=== PATIENT | female | born 1935 ===

== ENCOUNTER 2019-02-09 10:08 | Inpatient (IN) | payer MEDICARE ==
[2019-02-09 10:09] VITALS: BMI 23.4
--- NOTE | 2019-02-09 10:17 | ED PDOC ---
Arrival/HPI - General Time Seen by Provider: 02/09/19 10:09 Historian: Family, EMS EM Caveat: Acuity of Condition (Respiratory arrest) - History of Present Illness Narrative History of Present Illness (Text): 02/09/19 10:09 83 year old female, with past medical history of Alzheimer's, presents to the ED accompanied by daughter via EMS s/p respiratory distress since prior to arrival. As per daughter, patient began grasping for air that soon developed into respiratory distres this morning. EMS was subsequently called. Patient was given 500 units of bolus with continuous bagging with a BVM en route to the hospital. Upon arrival to ED, patient was still in respiratory distress. Daughter rat bedside states pt DNR/DNI for the patient. ROS limited secondary to patient's clinical condition. 02/09/19 14:53 Time/Duration: Prior to Arrival Symptom Onset: Sudden Symptom Course: Unchanged Activities at Onset: Light Context: Home Past Medical History - Provider Review Nursing Documentation Reviewed: Yes Family/Social History - Physician Review Nursing Documentation Reviewed: Yes Family/Social History: No Known Family HX Allergies/Home Meds Allergies/Adverse Reactions: Allergies No Known Allergies Allergy (Unverified 02/09/19 10:09) Review of Systems - Review of Systems Systems not reviewed;Unavailable: Acuity of Condition (Respiratory arrest) Physical Exam Vital Signs Reviewed: Yes Blood Pressure: Hypotensive Pulse: Tachycardic Appearance: Positive for: Cachectic Pain Distress: None Medical Decision Making ED Course and Treatment: 02/09/19 10:09 Impression: 83 year old female presents to the ED s/p respiratory distress. family request dni dnr. no aggressive measures. baseline demented non verbal bedbound. Plan: -- VBG -- EKG -- Labs -- Chest X-ray -- Urinalysis -- Reassess and disposition Prior Visits: Notes and results from previous visits were reviewed. Progress Notes: 02/09/19 10:09 EKG reviewed, shows A-fib at 135 bpm, non-specific ST/T wave changes. No previous EKG for comparison. 02/09/19 10:56 Chest X-ray reviewed by radiologist, shows; FINDINGS: LUNGS: There is extensive opacity in the right middle lobe banded superiorly by the minor fissure. Likely pneumonia. No volume loss. Examination limited by oblique positioning of the patient. No left-sided infiltrate. PLEURA: No gross evidence of pleural effusion. Right costophrenic angle is not included in this film, however. CARDIOVASCULAR: No aortic atherosclerotic calcification present. Normal cardiac size. No pulmonary vascular congestion. OSSEOUS STRUCTURES: No significant abnormalities. VISUALIZED UPPER ABDOMEN: Normal. OTHER FINDINGS: None. IMPRESSION: Suspect right middle lobe pneumonia. Limited examination. 02/09/19 10:56 CODE SEPSIS ACTIVATED. 02/09/19 14:54 anbitocis fluids given. lovenox given for afib. lasix given. seen by gail paramonte bedside. poor prognosis. condition gaurded. 02/09/19 14:55 neuropenic precautions iniated. - RAD Interpretation Target Worker: Radiologist - Gilbertoibarmani Statement The provider has reviewed the documentation as recorded by the Scribarmani Quintero. All medical record entries made by the Gilbertoibe were at my direction and personally dictated by me. I have reviewed the chart and agree that the record accurately reflects my personal performance of the history, physical exam, medical decision making, and the department course for this patient. I have also personally directed, reviewed, and agree with the discharge instructions and disposition. Disposition/Present on Arrival - Present on Arrival Any Indicators Present on Arrival: No - Disposition Have Diagnosis and Disposition been Completed?: Yes Diagnosis: Neutropenia, Sepsis, Pneumonia, Lactic acidosis Disposition: HOSPITALIZED Disposition Time: 13:00 Condition: CRITICAL
[2019-02-09] MEDS ORDERED: Sodium Chloride 0.9% 500 ML IV STA (10:18)
[2019-02-09] MEDS ORDERED: Vancomycin 1gm in NS 250ml 1 GM/250 ML BAG IVPB STA (10:24)
[2019-02-09] MEDS ORDERED: Piperacillin/Tazobact 3.375 gm 100 ML IVPB STA (10:24)
[2019-02-09 10:39] LABS: VENOUS BLOOD GAS BASE EXCESS 3.4 mmol/L (0.0-2.0); VENOUS BLOOD GAS PO2 25 mm/Hg (30-55); VENOUS BLOOD PH 7.35 (7.32-7.43)
[2019-02-09] MEDS ORDERED: Sodium Chloride 0.9% 1,000 ML IV STA (10:41)
[2019-02-09 10:46] LABS: URINE BILIRUBIN NEGATIVE (NEGATIVE); URINE BLOOD NEGATIVE (NEGATIVE); URINE GLUCOSE (UA) NEGATIVE (NEGATIVE); URINE LEUKOCYTE ESTERASE NEGATIVE Leu/uL (NEGATIVE); URINE PROTEIN TRACE mg/dL (<30 mg/dL); URINE UROBILINOGEN 0.2 E.U./dL (<1 E.U./dL)
[2019-02-09 10:47] LABS: URINE APPEARANCE CLEAR (CLEAR); URINE COLOR YELLOW (YELLOW)
[2019-02-09 10:53] LABS: HEMOGLOBIN 13.1 g/dL (12.0-16.0); LYMPH # 0.4 (1.2-3.4); LYMPH % 36.6 % (22.0-35.0); MEAN CELL VOLUME 95.4 fl (80.0-105.0); MEAN CORPUSCULAR HGB CONC 33.6 g/dl (31.0-37.0); MEAN PLATELET VOLUME 11.5 fl (7.0-11.0); PLATELET COUNT 92 10^3/uL (120.0-450.0); RBC 4.09 10^6/uL (3.5-6.1); RED CELL DISTRIBUTION WIDTH 15.5 % (11.5-14.5)
[2019-02-09 10:54] LABS: URINE BACTERIA TRACE /hpf; URINE EPITHELIAL CELLS 0 - 2 /hpf (0-5); URINE RBC 0 - 2 /hpf (0-2); URINE WBC 0 - 2 /hpf (0-6)
--- NOTE | 2019-02-09 10:54 | RAD ---
Date of service: 02/09/2019 HISTORY: sob COMPARISON: No prior. TECHNIQUE: 1 view obtained. FINDINGS: LUNGS: There is extensive opacity in the right middle lobe banded superiorly by the minor fissure. Likely pneumonia. No volume loss. Examination limited by oblique positioning of the patient. No left-sided infiltrate. PLEURA: No gross evidence of pleural effusion. Right costophrenic angle is not included in this film, however. CARDIOVASCULAR: No aortic atherosclerotic calcification present. Normal cardiac size. No pulmonary vascular congestion. OSSEOUS STRUCTURES: No significant abnormalities. VISUALIZED UPPER ABDOMEN: Normal. OTHER FINDINGS: None. IMPRESSION: Suspect right middle lobe pneumonia. Limited examination.
[2019-02-09 10:58] LABS: INR 1.48; PARTIAL THROMBOPLASTIN TIME 33.5 Seconds (26.9-38.3); PROTHROMBIN TIME 16.7 SECONDS (9.4-12.5)
[2019-02-09 10:59] LABS: ALBUMIN 2.6 g/dL (3.0-4.8); ALT/SGPT 35 U/L (7-56); AST/SGOT 53 U/L (14-36); BLOOD UREA NITROGEN 37 mg/dL (7-21); CALCIUM 8.2 mg/dL (8.4-10.5); GFR NON-AFRICAN AMERICAN > 60; LIPASE 57 U/L (23-300)
[2019-02-09 11:11] LABS: B-TYPE NATRIURETIC PEPTIDE 3480 pg/mL (0-450); TROPONIN I 0.04 ng/mL
[2019-02-09] MEDS ORDERED: Enoxaparin 30 mg Syringe SC STA (11:14)
[2019-02-09 11:22] LABS: ATYPICAL LYMPHOCYTE 3 % (0.0-0.0); BAND 8 % (0-2); LYMPHOCYTE 48 % (22.0-35.0); METAMYELOCYTE 2 %; MONOCYTE 16 % (1.0-6.0); NEUTROPHIL 23 % (50.0-70.0)
[2019-02-09 11:23] LABS: CK MB% 1.8 % (2.5-3.0); CK-MB 7.2 ng/mL (0.0-3.6); LARGE PLATELETS PRESENT
[2019-02-09] MEDS ORDERED: Albuterol-Ipratrop 3 mg / 0.5 (3 ml) UD IH PRN (11:47)
[2019-02-09] MEDS ORDERED: Sodium Chloride 0.45% 1,000 ML IV SCH (12:00)
--- NOTE | 2019-02-09 12:19 | CP.PCM.CON ---
History of Present Illness - History of Present Illness History of Present Illness: Palliative consult requested copied to Dr Kristine Hawkins Reason: Goals of care 83 year old female with history of Alzheimer disease who was brought to ED via EMs with respiratory distress. Family reports the patient's baseline a s being bed bound, contractures,non verbal. Daughter states that over the past few days she has been more lethargic and having trouble swallowing food. Family denied fever, nausea, vomiting, diarrhea. WBC 1.0, Lactic acid 4.7, TCK 411, BNP 3480 Chest x ray: Suspect RLL pneumonia. EKG: A Fib with RVR, NS ST/T wave changes PMH: None PSH: bunion surgery Social History: Non smoker, no alcohol or drug use. Lives with daughter Family History: Siblings,mother>dementia Advance Care Planning: The pat does not have an Advanced Directive. Family states she is DNR/DNI Review of Systems: as per HPI, una12 point ROS unattainable. due to AMS Past Patient History - Infectious Disease Hx of Infectious Diseases: None - Past Social History Smoking Status: Unknown If Ever Smoked - HEMATOLOGICAL/ONCOLOGICAL Hx Blood Disorders: No - INTEGUMENTARY Hx Dermatological Problems: No - PSYCHIATRIC Hx Psychophysiologic Disorder: No Hx Substance Use: No - SURGICAL HISTORY Hx Surgeries: No - ANESTHESIA Hx Anesthesia Reactions: No Meds Allergies/Adverse Reactions: Allergies Allergy/AdvReac Type Severity Reaction Status Date / Time No Known Allergies Allergy Unverified 02/09/19 10:09 - Medications Medications: Current Medications Albuterol/Ipratropium (Duoneb 3 Mg/0.5 Mg (3 Ml) Ud) 3 ml IH [id number] IRON Albuterol/Ipratropium (Duoneb 3 Mg/0.5 Mg (3 Ml) Ud) 3 ml IH Q2H PRN PRN Reason: Shortness of Breath Cefepime HCl (Maxipime 1gm) 1 gm in 100 mls @ 100 mls/hr IVPB Q12 IRON; Protocol Sodium Chloride (Sodium Chloride 0.45%) 1,000 mls @ 100 mls/hr IV .Q10H IRON Methylprednisolone (Solu-Medrol) 40 mg IV Q8 IRON Pantoprazole Sodium (Protonix Inj) 40 mg IVP DAILY IRON Physical Exam - Constitutional Appears: Cachectic, Chronically Ill - Head Exam Head Exam: NORMOCEPHALIC - Eye Exam Eye Exam: Normal appearance, PERRL - ENT Exam ENT Exam: Mucous Membranes Dry - Respiratory Exam Respiratory Exam: Decreased Breath Sounds, Rhonchi - Cardiovascular Exam Cardiovascular Exam: Tachycardia, Irregular Rhythm, +S1, +S2 - GI/Abdominal Exam GI & Abdominal Exam: Hypoactive Bowel Sounds, Soft - Extremities Exam Additional comments: contractures - Back Exam Additional comments: stage 1 decubiti right hip - Neurological Exam Neurological exam: Altered - Skin Skin Exam: Dry, Pallor - Additional Findings Additional findings: Palliative performance scale rating 30% Results - Vital Signs Recent Vital Signs: Last Vital Signs Temp 98.0 F 02/09/19 10:41 Pulse 108 H 02/09/19 11:52 Resp 22 02/09/19 10:41 BP 146/46 L 02/09/19 11:53 Pulse Ox 92 L 02/09/19 10:41 - Labs Result Diagrams: 02/09/19 10:20 02/09/19 10:20 Labs: Laboratory Results - last 24 hr 02/09/19 02/09/19 02/09/19 10:20 10:20 10:20 WBC 1.0 L* RBC 4.09 Hgb 13.1 Hct 39.0 MCV 95.4 MCH 32.0 MCHC 33.6 RDW 15.5 H Plt Count 92 L MPV 11.5 H Neut % (Auto) 60.4 Lymph % (Auto) 36.6 H [place] % (Auto) 3.0 Eos % (Auto) 0.0 L Baso % (Auto) 0.0 Lymph # (Auto) 0.4 L [place] # (Auto) 0.0 L Eos # (Auto) 0.0 Baso # (Auto) 0.00 Absolute Neuts (auto) 0.61 L Neutrophils % (Manual) 23 L Band Neutrophils % 8 H Lymphocytes % (Manual) 48 H Atypical Lymphs % 3 H Monocytes % (Manual) 16 H Metamyelocytes % 2 Large Platelets Present PT 16.7 H INR 1.48 APTT 33.5 pO2 VBG pH VBG pCO2 VBG HCO3 VBG Total CO2 VBG O2 Sat (Calc) VBG Base Excess VBG Potassium Glucose Lactate FiO2 Crit Value Called To Crit Value Called By Blood Gas Notified Time Sodium 139 Potassium 4.3 Chloride 105 Carbon Dioxide 29 Anion Gap 10 BUN 37 H Creatinine 0.8 Est GFR ( Amer) > 60 Est GFR (Non-Af Amer) > 60 Random Glucose 62 L Calcium 8.2 L Magnesium 2.1 Total Bilirubin 0.5 AST 53 H ALT 35 Alkaline Phosphatase 55 Lactate Dehydrogenase 685 Total Creatine Kinase 411 H CK-MB (CK-2) 7.2 H CK-MB (CK-2) % 1.8 L Troponin I 0.04 NT-Pro-B Natriuret Pep 3480 H Total Protein 5.2 L Albumin 2.6 L Globulin 2.5 Albumin/Globulin Ratio 1.0 L Lipase 57 Venous Blood Potassium Urine Color Urine Appearance Urine pH Ur Specific [place] Urine Protein Urine Glucose (UA) Urine Ketones Urine Blood Urine Nitrate Urine Bilirubin Urine Urobilinogen Ur Leukocyte Esterase Urine RBC Urine WBC Ur Epithelial Cells Urine Bacteria 02/09/19 02/09/19 10:30 10:30 WBC RBC Hgb Hct MCV MCH MCHC RDW Plt Count MPV Neut % (Auto) Lymph % (Auto) [place] % (Auto) Eos % (Auto) Baso % (Auto) Lymph # (Auto) [place] # (Auto) Eos # (Auto) Baso # (Auto) Absolute Neuts (auto) Neutrophils % (Manual) Band Neutrophils % Lymphocytes % (Manual) Atypical Lymphs % Monocytes % (Manual) Metamyelocytes % Large Platelets PT INR APTT pO2 25 L VBG pH 7.35 VBG pCO2 55.0 VBG HCO3 30.4 H VBG Total CO2 32.1 H VBG O2 Sat (Calc) 51.8 VBG Base Excess 3.4 H VBG Potassium 4.2 Glucose 65 Lactate 4.1 H* FiO2 21.0 Crit Value Called To Avril Crit Value Called By [id number] Blood Gas Notified Time 1040 Sodium 139.0 Potassium Chloride 106.0 Carbon Dioxide Anion Gap BUN Creatinine Est GFR ( Amer) Est GFR (Non-Af Amer) Random Glucose Calcium Magnesium Total Bilirubin AST ALT Alkaline Phosphatase Lactate Dehydrogenase Total Creatine Kinase CK-MB (CK-2) CK-MB (CK-2) % Troponin I NT-Pro-B Natriuret Pep Total Protein Albumin Globulin Albumin/Globulin Ratio Lipase Venous Blood Potassium 4.2 Urine Color Yellow Urine Appearance Clear Urine pH 6.0 Ur Specific [place] 1.025 Urine Protein Trace H Urine Glucose (UA) Negative Urine Ketones Negative Urine Blood Negative Urine Nitrate Negative Urine Bilirubin Negative Urine Urobilinogen 0.2 Ur Leukocyte Esterase Negative Urine RBC 0 - 2 Urine WBC 0 - 2 Ur Epithelial Cells 0 - 2 Urine Bacteria Trace Assessment & Plan - Assessment and Plan (Free Text) Assessment: 83 year old female with history of Alzheimer's disease who is admitted with re spiratory distress, dehydration,sepsis, probable RLL pneumonia, A Fib. Patients daughters at bedside. Goals of care discussed. Family affirms patient is DNR/DNI. Family state they do not want aggressive interventions. Family will allow minimal testing, such as chest x ray and labs. Family agree's to antibiotic therapy, IVF's, BiPap and other suportiv care. Family understands that patient is critically ill and may not rebound from situation. I explained that if patient's condition continues to decline that hospice care could be instituted. Family is appreciative of our discussion and have decided to give things more time before making decision for comfort care. Psychosocial support provided. Time spent with family in goals of care discussion, 30 minutes Plan: Goals of care, will follow Respirator Failure: Lasix x1> Continue BiPaP,nebulizers, Solumedrol. Sepsis: Zosyn X1,[place] cultures pending: Continue Cefepime IVF's DVT prophylaxis PPI
--- NOTE | 2019-02-09 12:51 | CP.PCM.CON ---
Past Patient History - Infectious Disease Hx of Infectious Diseases: None - Past Social History Smoking Status: Unknown If Ever Smoked - HEMATOLOGICAL/ONCOLOGICAL Hx Blood Disorders: No - INTEGUMENTARY Hx Dermatological Problems: No - PSYCHIATRIC Hx Psychophysiologic Disorder: No Hx Substance Use: No - SURGICAL HISTORY Hx Surgeries: No - ANESTHESIA Hx Anesthesia Reactions: No Meds Allergies/Adverse Reactions: Allergies Allergy/AdvReac Type Severity Reaction Status Date / Time No Known Allergies Allergy Unverified 02/09/19 10:09 - Medications Medications: Current Medications Albuterol/Ipratropium (Duoneb 3 Mg/0.5 Mg (3 Ml) Ud) 3 ml IH [id number] IRON Albuterol/Ipratropium (Duoneb 3 Mg/0.5 Mg (3 Ml) Ud) 3 ml IH Q2H PRN PRN Reason: Shortness of Breath Cefepime HCl (Maxipime 1gm) 1 gm in 100 mls @ 100 mls/hr IVPB Q12 IRON; Protocol Sodium Chloride (Sodium Chloride 0.45%) 1,000 mls @ 100 mls/hr IV .Q10H IRON Methylprednisolone (Solu-Medrol) 40 mg IV Q8 IRON Pantoprazole Sodium (Protonix Inj) 40 mg IVP DAILY IRON Results - Vital Signs Recent Vital Signs: Last Vital Signs Temp 98.0 F 02/09/19 10:41 Pulse 96 H 02/09/19 12:08 Resp 22 02/09/19 10:41 BP 87/56 L 02/09/19 12:08 Pulse Ox 90 L 02/09/19 12:08 - Labs Result Diagrams: 02/09/19 10:20 02/09/19 10:20 Labs: Laboratory Results - last 24 hr 02/09/19 02/09/19 02/09/19 10:20 10:20 10:20 WBC 1.0 L* RBC 4.09 Hgb 13.1 Hct 39.0 MCV 95.4 MCH 32.0 MCHC 33.6 RDW 15.5 H Plt Count 92 L MPV 11.5 H Neut % (Auto) 60.4 Lymph % (Auto) 36.6 H [place] % (Auto) 3.0 Eos % (Auto) 0.0 L Baso % (Auto) 0.0 Lymph # (Auto) 0.4 L [place] # (Auto) 0.0 L Eos # (Auto) 0.0 Baso # (Auto) 0.00 Absolute Neuts (auto) 0.61 L Neutrophils % (Manual) 23 L Band Neutrophils % 8 H Lymphocytes % (Manual) 48 H Atypical Lymphs % 3 H Monocytes % (Manual) 16 H Metamyelocytes % 2 Large Platelets Present PT 16.7 H INR 1.48 APTT 33.5 pO2 VBG pH VBG pCO2 VBG HCO3 VBG Total CO2 VBG O2 Sat (Calc) VBG Base Excess VBG Potassium Glucose Lactate FiO2 Crit Value Called To Crit Value Called By Blood Gas Notified Time Sodium 139 Potassium 4.3 Chloride 105 Carbon Dioxide 29 Anion Gap 10 BUN 37 H Creatinine 0.8 Est GFR ( Amer) > 60 Est GFR (Non-Af Amer) > 60 Random Glucose 62 L Calcium 8.2 L Magnesium 2.1 Total Bilirubin 0.5 AST 53 H ALT 35 Alkaline Phosphatase 55 Lactate Dehydrogenase 685 Total Creatine Kinase 411 H CK-MB (CK-2) 7.2 H CK-MB (CK-2) % 1.8 L Troponin I 0.04 NT-Pro-B Natriuret Pep 3480 H Total Protein 5.2 L Albumin 2.6 L Globulin 2.5 Albumin/Globulin Ratio 1.0 L Lipase 57 Venous Blood Potassium Urine Color Urine Appearance Urine pH Ur Specific [place] Urine Protein Urine Glucose (UA) Urine Ketones Urine Blood Urine Nitrate Urine Bilirubin Urine Urobilinogen Ur Leukocyte Esterase Urine RBC Urine WBC Ur Epithelial Cells Urine Bacteria 02/09/19 02/09/19 10:30 10:30 WBC RBC Hgb Hct MCV MCH MCHC RDW Plt Count MPV Neut % (Auto) Lymph % (Auto) [place] % (Auto) Eos % (Auto) Baso % (Auto) Lymph # (Auto) [place] # (Auto) Eos # (Auto) Baso # (Auto) Absolute Neuts (auto) Neutrophils % (Manual) Band Neutrophils % Lymphocytes % (Manual) Atypical Lymphs % Monocytes % (Manual) Metamyelocytes % Large Platelets PT INR APTT pO2 25 L VBG pH 7.35 VBG pCO2 55.0 VBG HCO3 30.4 H VBG Total CO2 32.1 H VBG O2 Sat (Calc) 51.8 VBG Base Excess 3.4 H VBG Potassium 4.2 Glucose 65 Lactate 4.1 H* FiO2 21.0 Crit Value Called To Avril Crit Value Called By [id number] Blood Gas Notified Time 1040 Sodium 139.0 Potassium Chloride 106.0 Carbon Dioxide Anion Gap BUN Creatinine Est GFR ( Amer) Est GFR (Non-Af Amer) Random Glucose Calcium Magnesium Total Bilirubin AST ALT Alkaline Phosphatase Lactate Dehydrogenase Total Creatine Kinase CK-MB (CK-2) CK-MB (CK-2) % Troponin I NT-Pro-B Natriuret Pep Total Protein Albumin Globulin Albumin/Globulin Ratio Lipase Venous Blood Potassium 4.2 Urine Color Yellow Urine Appearance Clear Urine pH 6.0 Ur Specific [place] 1.025 Urine Protein Trace H Urine Glucose (UA) Negative Urine Ketones Negative Urine Blood Negative Urine Nitrate Negative Urine Bilirubin Negative Urine Urobilinogen 0.2 Ur Leukocyte Esterase Negative Urine RBC 0 - 2 Urine WBC 0 - 2 Ur Epithelial Cells 0 - 2 Urine Bacteria Trace
[2019-02-09] MEDS: Albuterol-Ipratrop 3 mg / 0.5 (3 ml) UD IH SCH ×2 (14:34→19:40)
--- NOTE | 2019-02-09 14:46 | PCM.SEPTIC ---
Sepsis Progress Note - Reassessment Type Date of Evaluation: 02/09/19 Time of Evaluation: 14:52 Reassessment Type: Non-invasive reassessment - Non Invasive Reassessment Were the most recent vital sign reviewed: Yes Vital Sign (Latest): Temp Pulse Resp BP Pulse Ox 98.0 F 89 16 103/59 L 95 02/09/19 10:41 02/09/19 13:27 02/09/19 13:27 02/09/19 13:27 02/09/19 13:27 Cardiovascular: Yes: Regular Rate, Rhythm Respiratory: Yes: Accessory Muscle Use. No: Crackles, Rales, Rhonchi, Respiratory Distress Capillary Refill: Normal (Less than 2 sec) Skin: Pale
[2019-02-09] MEDS: MethylPREDNISolone 40 mg Vial IV SCH ×2 (14:48→21:50)
[2019-02-09] MEDS: Cefepime 1gm in NS 100ml 1 GM/100 ML BAG IVPB SCH ×2 (14:48→21:51)
--- NOTE | 2019-02-09 17:56 | CARD ---
APPROVED REPORT Date of service: 02/09/2019 EKG Measurement Heart [id number] <Conclusion> Atrial fibrillation with rapid ventricular response with premature ventricular or aberrantly conducted complexes Low voltage QRS ST & T wave abnormality, consider lateral ischemia or digitalis effect Abnormal ECG
[2019-02-09] MEDS: Morphine 2 mg/ml ISec IVP SCH (23:01)
[2019-02-09] MEDS ORDERED: Cefepime 1gm in NS 100ml 1 GM/100 ML BAG IVPB SCH (23:02)
[2019-02-10 00:06] VITALS: TEMP 98.2; O2SAT 100
[2019-02-10 01:04] VITALS: BP 117/77; RESP 20
[2019-02-10] MEDS: Albuterol-Ipratrop 3 mg / 0.5 (3 ml) UD IH SCH ×2 (02:18→08:00)
--- NOTE | 2019-02-10 04:10 | CON ---
DATE: 02/10/2019 The patient was seen earlier today in the emergency room. CHIEF COMPLAINT: Respiratory arrest x1 day. HISTORY OF PRESENT ILLNESS: An 83-year-old female with past medical history significant for Alzheimer's. The patient is contracted and non , cachectic end-stage patient with wasting syndrome. The patient had been not eating well. Brought to the emergency room where I saw the patient earlier today in the emergency room. The patient is unable to give me any history and getting shortness of breath. There has been no fever or chills reported and no diarrhea reported. No blood per rectum. PAST MEDICAL HISTORY: Significant for Alzheimer's and cachectic. The patient is also with cataract. PAST SURGICAL HISTORY: Significant for bunion surgery. ALLERGIES: PATIENT HAS NO KNOWN ALLERGIES. MEDICATIONS AT HOME: Not available. REVIEW OF SYSTEMS: A 12-point review of systems is performed. PHYSICAL EXAMINATION GENERAL: Patient is in bed, was seen in the emergency room, contracted and wasting syndrome. VITAL SIGNS: A temperature of 98 to 99 and respiratory rate of 18, it was up to 22; heart rate of 93, it was up to 140; and blood pressure of 84/37. HEENT: Unremarkable. There is temporal wasting. The patient is cachectic with a BMI of 13 and with wasting syndrome and end-stage. NECK: Supple. LUNGS: Decreased breath sounds. HEART: Normal S1, S2. ABDOMEN: Soft, nontender. LABORATORY DATA: Reveals the patient's white count is 1 with an absolute neutrophil count of 610 with a hemoglobin of 13, platelets of 92. Chemistry reveals a BUN of 37, creatinine of 0.8, and creatinine kinase is 411. BMP is 3480. Urinalysis reveals unremarkable and the patient's chest x-ray reveals extensive right middle lobe pneumonia. 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 We will start the patient with cefepime and doxycycline. It is unclear if she has been in the hospital recently and in another hospital, the history is unclear and therefore, we will treat with cefepime and doxycycline and then should consider a hospice setting for this patient who appears to be end-stage. Prognosis is very poor pending initial workup results. Review of orders reveals we have ordered mike cultures. Avril Paramonte's consultation is reviewed. Also go for a hospice setting. Darshan Chua MD
--- NOTE | 2019-02-10 04:16 | HP ---
DATE OF EXAM: 02/09/2019 HISTORY OF PRESENT ILLNESS: The patient is an 83-year-old female, who I saw in guardroom. The patient is unresponsive. She is on BiPAP, brought in by family because of increasing shortness of breath prior to coming to the hospital. The patient is an 83-year-old female, basically bed bound. Apparently, she has flexion contractures and according to family, she has not been well for last few days and she has been increasingly lethargic with poor oral intake. This morning, she noted to have distress to the point she was gasping for air, so EMS was called and the patient was brought to emergency room. PAST MEDICAL HISTORY: No past medical history except dementia, increasing weakness. PAST SURGICAL HISTORY: Bunion surgery. ALLERGIES: SHE IS NOT ALLERGIC TO ANY MEDICATION. MEDICATIONS AT HOME: There is no documented medications that she has been on. SOCIAL HISTORY: She lives with her daughter. She has no history of smoking, drinking, alcohol use. PHYSICAL EXAMINATION GENERAL: She is minimally responsive, only response to internal education, but not communicative, on BiPAP. VITAL SIGNS: She has temperature of 97.8, pulse 80, respirations 18, blood pressure 94/37. LUNGS: Bilateral rhonchi with diffuse decrease breath sounds. HEART: S1 and S2 audible. ABDOMEN: Soft, nontender. EXTREMITIES: She has bilateral flexion contracture of lower extremities. Bilateral leg, no edema. LABORATORY DATA: WBC 5.0, hemoglobin 13, hematocrit 39, platelet of 92. PT 16.7, INR 1.48. ABG; pH is 7.35, PCO2 of 55, PO2 of 32, lactate 4.1. Chemistry; sodium 139, potassium 4.3, chloride 105, CO2 of 29, BUN 37, creatinine 0.8, blood sugar of 62, AST 53, total CPK 411, BNP 3480. Urinalysis is negative. X-ray of chest done shows right middle lobe pneumonia. ASSESSMENT: 1. Sepsis probably secondary to right middle lobe pneumonia. 2. Pancytopenia. 3. Advanced dementia. 4. Respiratory distress. PLAN: Family wanted the patient to be DNR. We will discontinue on telemetry. We will discontinue IV antibiotics, start her on analgesic and tranquilizer for her comfort care. We will follow this patient in a.m. Carlee Hawkins MD [facility] # [id number]
[2019-02-10] MEDS: Morphine 2 mg/ml ISec IVP SCH ×2 (04:37→09:48)
[2019-02-10 10:19] VITALS: PULSE 79
--- NOTE | 2019-02-10 22:43 | PN ---
DATE: 02/10/2019 SUBJECTIVE: The patient is in bed, in no acute distress, nontoxic. PHYSICAL EXAMINATION: VITAL SIGNS: Temperature of 98, blood pressure is 117/70, and respiratory rate of 20. HEENT: Unremarkable. NECK: Supple. LUNGS: Have decreased breath sounds. HEART: Normal S1, S2. ABDOMEN: Soft. LABORATORY DATA: Reviewed. ASSESSMENT AND PLAN: This is an 83-year-old female who was seen early this morning who is end-stage, cachectic and there is discussion about making the patient hospice, awaiting final hospice decision. Please maintain no antibiotics and no further workup. Darshan Chua MD
== END 2019-02-10 11:21 | disposition hospice, inpatient (51) | DRG 871 ==
LOC: ED 10:08 → ERH 11:24 → 2RNO 13:35 → 3RNO 02-10 03:20
PROVIDERS: ADMIT Internal Medicine; ATTEND Internal Medicine
PROC: 5A09457 Assistance with Respiratory Ventilation, 24-96 Consecutive Hours, Continuous Positive Airway Pressure (ICD-10-PCS; principal; 2019-02-09)
PROC: 3E0F7GC Introduction of Other Therapeutic Substance into Respiratory Tract, Via Natural or Artificial Opening (ICD-10-PCS; 2019-02-09)
DX: A41.9 Sepsis, unspecified organism (principal); J18.1 Lobar pneumonia, unspecified organism; D61.818 Other pancytopenia; R64 Cachexia; Z68.1 Body mass index [BMI] 19.9 or less, adult; E87.2 Acidosis; I48.91 Unspecified atrial fibrillation; G30.9 Alzheimer's disease, unspecified; F02.80 Dementia in other diseases classified elsewhere, unspecified severity, without behavioral disturbance, psychotic disturbance, mood disturbance, and anxiety; Z74.01 Bed confinement status; Z66 Do not resuscitate

== ENCOUNTER 2019-02-10 11:20 | Inpatient (IN) | payer OTHER ==
[2019-02-10 11:32] VITALS: BMI 17.1
[2019-02-10 11:50] VITALS: RESP 18
[2019-02-10] MEDS ORDERED: Morphine 2 mg/ml ISec IVP PRN (12:05)
[2019-02-10] MEDS: Morphine 2 mg/ml ISec IVP SCH ×3 (13:17→21:26)
--- NOTE | 2019-02-10 22:10 | HP ---
DATE OF EXAM: 02/10/2019 HISTORY OF PRESENT ILLNESS: The patient is an 83-year-old who was brought to emergency room because of increasing shortness of breath. I talk with the patient's daughter Dina, who state that her mother has been bed bound for last 4 to 5 years. She has never taken her to the doctor. She states one day prior to coming to the hospital, she was drooling her food and she was chocking, so the following day, she developed severe shortness of breath, she brought her to emergency room. The patient was found to be very hypoxic, she was started on BiPAP. She was found to be pancytopenic and has aspiration pneumonia that was explained to the family who wanted her to be in hospice care and thus she was transferred to hospice care today. PAST MEDICAL HISTORY: She has no significant past medical history except bunionectomy. PHYSICAL EXAMINATION GENERAL: The patient is awake and alert, able to communicate. VITAL SIGNS: The patient is afebrile. Pulse 68, respirations 18, no blood pressure available for now. On examination, she is on BiPAP that will be switch to 4 L nasal cannula. LUNGS: Bilateral fair airflow. HEART: S1 and S2 audible, tachycardic. ABDOMEN: Soft. NEUROLOGICAL: She is unresponsive. She has bilateral flexion contracture on both legs. ASSESSMENT: 1. Pancytopenia. 2. Sepsis. 3. Status post respiratory distress. 4. Respiration pneumonia. PLAN: The patient has been transferred to hospice care. We will start her on lorazepam every 6 hours and we will keep her on Ativan 1 mg every 8 hours around the clock. So, I discussed with the family who was at the bedside to plan is to keep her comfortable and she will be getting Ativan 1 mg every 8 hours and morphine 1 mg every 4 hours and oxygen 2 L nasal cannula. Carlee Hawkins MD
[2019-02-11] MEDS: Morphine 2 mg/ml ISec IVP SCH ×6 (01:27→20:15)
--- NOTE | 2019-02-11 13:15 | PN ---
DATE: 02/11/2019 SUBJECTIVE: The patient is an 83-year-old, seen and examined. Seems to be comfortable. Not in any distress. Respiration is 18. Vitals was taken. PHYSICAL EXAMINATION: GENERAL: She appears comfortable. Mild shortness of breath. LUNGS: No rhonchi or crackle. HEART: S1 and S2, audible. Tachycardic. ABDOMEN: Soft and nontender. NEUROLOGIC: She is unresponsive. ASSESSMENT: 1. Status post aspiration pneumonia. 2. Status post pancytopenia. 3. History of advanced dementia. PLAN: Currently, the patient is on 2 liter nasal cannula. She is getting Ativan 1 mg every 8 and she is on morphine 1 mg every 4, I will increase that to 2 mg to keep her comfortable. Family is at the bedside, discussed with them. We will followup the patient in a.m. Carlee Hawkins MD
[2019-02-12] MEDS: Morphine 2 mg/ml ISec IVP SCH ×7 (00:15→21:10)
--- NOTE | 2019-02-12 23:54 | DS ---
HISTORY OF PRESENT ILLNESS: The patient is a 83-year-old, seen and examined, seems comfortable, and unresponsive. She has gasping breathing, does not seems to be in any distress. PHYSICAL EXAMINATION: GENERAL: She is malnourished, and unresponsive, and looks pale. VITAL SIGNS: She seems afebrile, her respirations is 12. LUNGS: Bilateral fair airflow. No rhonchi or crackle noted. HEART: S1 and S2 audible. ABDOMEN: Soft and nontender. No rebound. No guarding. NEUROLOGIC: She is unresponsive. ASSESSMENT: 1. Status post aspiration pneumonia. 2. Noninsulin-dependent diabetes. 3. Pancytopenia. 4. Status post respiratory distress. PLAN: The patient is currently on hospice care. We will continue on Ativan and morphine. Family is at the bedside and the patient seems to be apneic and DNR is in place. Carlee Hawkins MD
[2019-02-13] MEDS: Morphine 2 mg/ml ISec IVP SCH ×6 (01:26→20:15)
--- NOTE | 2019-02-13 14:17 | PN ---
DATE: 02/13/2019 SUBJECTIVE: The patient is 83-year-old, unresponsive. Seems very comfortable; not in any respiratory distress. Has apneic breathing. Otherwise, vital signs are not available. PHYSICAL EXAMINATION: GENERAL: On examination, remains comfortable. HEART: Bradycardiac, so her breathing is apneic and she is unresponsive. ASSESSMENT: 1. Status post respiratory failure. 2. Aspiration pneumonia. 3. History of hypertension. 4. Advanced dementia. PLAN: We will discontinue Holden's. We will continue on morphine and Ativan and the patient comfortable. Carlee Hawkins MD
[2019-02-14] MEDS: Morphine 2 mg/ml ISec IVP SCH ×2 (00:37→05:05)
--- NOTE | 2019-02-14 08:12 | CP.PCM.PRO ---
Pronouncement of Note - Clinical Findings Physical Exam: No Response Verbal/Painful Stimuli, Absent Peripheral Puls es{Carotid & Femoral}, Absent Heart & Breath Sounds, No Pupillary Light Reflex, No Corneal Reflex, Pupils Fixed & Dilated, Absence of Vital Signs - Pronouncement Time Time of Pronouncement of : 08:12 - Notifications Pronouncement Notifications: Family Notified, Atending Notified Copy Coordinator Notified: No - Autopsy Autopsy Requested: No - [place] [id number]
--- NOTE | 2019-02-15 00:57 | DS ---
HISTORY OF PRESENT ILLNESS: The patient is 83-year-old who was brought to emergency room with respiratory distress, according to daughter day prior to coming to the hospital when she was feeding, the patient started to drool, having difficulty swallowing and on the following day, she started to have respiratory discomfort, so she was found to be septic, she was pancytopenic. Family made her DNR, wanted to have hospice care started. Initially, she was given IV antibiotic with BiPAP, IV steroid, but when she was made DNR and was started on hospice. She was given IV Ativan and morphine. The patient earlier this morning. She was found to the apneic, bradycardic and unresponsive since she was DNR, she was not resuscitated. ASSESSMENT AND PLAN/DISCHARGE DIAGNOSES: 1. Sepsis, secondary to aspiration pneumonia. 2. Advanced dementia. 3. Pancytopenia. Carlee Hawkins MD
== END 2019-02-14 08:12 | DRG 871 ==
LOC: 3RNO 11:20
PROVIDERS: ADMIT Internal Medicine; ATTEND Internal Medicine
DX: A41.9 Sepsis, unspecified organism (principal); J69.0 Pneumonitis due to inhalation of food and vomit; J96.91 Respiratory failure, unspecified with hypoxia; D61.818 Other pancytopenia; E11.9 Type 2 diabetes mellitus without complications; I10 Essential (primary) hypertension; R13.10 Dysphagia, unspecified; F03.90 Unspecified dementia, unspecified severity, without behavioral disturbance, psychotic disturbance, mood disturbance, and anxiety; Z51.5 Encounter for palliative care; Z66 Do not resuscitate; R00.0 Tachycardia, unspecified